=== PATIENT | female | born 2000 | race Caucasian/White ===

== ENCOUNTER 2022-05-26 09:15 | Outpatient (CLI) | payer OTHER, SELFPAY ==
--- NOTE | ~2022-05-26 | MR_ITS ---
EXAMINATION: MR pituitary wo/w con DATE: 05/26/2022 10:45 INDICATION: Hyperprolactinemia. TECHNIQUE: Magnetic resonance imaging (MRI) of the brain and brainstem was performed without and with 20 mL MultiHance intravenous contrast. COMPARISON: None. FINDINGS: There is no acute ischemic infarct or intracranial hemorrhage. The pituitary demonstrates a height of 11 mm. There is a 16 x 10 x 8 mm mass of increased T1-weighted signal intensity without co ntrast enhancement in the pituitary. The optic chiasm is normal. The ventricles are normal in size. V ertebral body heights are normal. The paranasal sinuses are clear. The mastoid air cells are normal. IMPRESSION: 1. 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 Reviewed, dictated and finalized at location A.
== END 2022-05-26 09:16 | disposition home or self-care (01) ==
LOC: ANHIMG 09:27
PROVIDERS: PCP Nurse Practitioner Family; Visit Provider Nurse Practitioner
DX: E22.1 Hyperprolactinemia (principal)
CPT/HCPCS: 70553; A9577